=== PATIENT | male | born 2000 | race Two or more races ===

== ENCOUNTER 2024-10-16 21:47 | Emergency (ER) | payer MEDICAID, SELFPAY ==
--- NOTE | 2024-10-16 22:14 | EDNOTE_ITS ---
ED SOB =RME/HPI General Chief Complaint: Shortness of Breath/Dyspnea Stated Complaint: SOB Time Seen by Provider: 10/16/24 22:17 Arrival date/time: 10/16/24 21:47 RME / HPI RME / HPI Narrative: This section includes all my notes and documentations, including HPI, PE, and ED course. Gabriel Gunderson MD HPI: 24yo male with no significant past medical history presents to the ED for a chief complaint of shortness of breath x today. It does not worsen on exertion. No cough, fever, chills, chest pain, abdominal pain or any other associated symptoms. No daily medications. No other complaints reported. ROS: All negative except as documented in HPI. Physical Exam: General: Alert and oriented. Appears severely anxious. Eyes: Conjunctivae and lids clear. ENT: No nasal congestion. Neck: Supple. Heart: RRR. Lungs: No respiratory distress. Good air movement. No rhonchi, wheezing, rales. Abdomen: Soft and nontender. Skin: Warm and dry. Neuro: Alert and oriented X 3. I reviewed all diagnostic test results. My interpretation of the EKG is sinus rhythm with no ST-T changes. My interpretation of the chest x-ray is NAD. Blood tests are unremarkable, including negative troponin/D-dimer/BNP. At this point, diagnoses include shortness of breath due to anxiety. Treatment here included Xanax. Significant improvement noted. Recommended more outpatient workup. Based on my best medical judgment, made decision no further evaluation or treatment indicated at this time. Patient understands and agrees to the discharge instructions customized and printed, see below. Discharge instructions from Dr. Gunderson: 1. After extensive evaluation, there is no life-threatening condition. Such as heart attack or pulmonary embolism (blood clots in your lungs) or pneumothorax (collapsed lung). 2. Your symptoms may be due to underlying stress or anxiety or nerves. This is fairly common. 3. Take Xanax as needed. Whether this helps or not will be valuable information to your private doctors. 4. See a private doctor on 10/17/2024. To make sure there is no serious underlying heart condition, ask to help you get more tests for your heart that cannot be done here in the ER. Such as Holter Monitor (cardiac monitoring at home from a day to even a month), heart stress test (on treadmill or with medication), echocardiogram (imaging of your heart structures), heart catherization (checking for blockages in your heart arteries), and a referral to see a Superintendent [employer]. 5. Seek immediate medical care with worsening or with any concerns. Gabriel Gunderson MD Related Data Previous Rx's ?Medication ?Instructions ?Recorded alprazolam 0.5 mg tablet (Xanax) 0.5 mg PO BID PRN anx iety #10 tabs 10/16/24 Allergies Allergy/AdvReac Type Severity Reaction Status Date / Time No Known Allergies Allergy Verified 10/16/24 21:49 Review of Systems Review of Systems Systems Reviewed: All systems reviewed, normal except as documented Past Medical History Social History SMOKING STATUS: Never smoker ED Exam Narrative Physical exam: As noted in HPI. Course Course Course Narrative: CXR is ordered for determining the etiology of shortness of breath. Quality Measures none Orders Category Date Time Status EKG (ED ONLY) *Do not use* NOW Care 10/16/24 22:16 Completed EKG (ED Only) Stat Exams 10/16/24 22:16 Draft XR chest 1V portable Stat Exams 10/16/24 22:16 Completed BMP [Basic Metabolic Panel] Stat Lab 10/16/24 22:55 Completed BNP [B-Type Natriuretic Peptide] Stat Lab 10/16/24 22:55 Completed CBC Stat Lab 10/16/24 22:55 Completed D-Dimer Stat Lab 10/16/24 22:55 Completed Free T4 (Free Thyroxine) Stat Lab 10/16/24 22:55 Completed Magnesium Stat Lab 10/16/24 22:55 Completed TSH [Thyroid Stimulating Hormone] Stat Lab 10/16/24 22:55 Completed Troponin I Stat Lab 10/16/24 22:55 Completed ALPRazoLAM [Xanax] Med 10/16/24 22:16 Discontinued 0.5 mg PO X1 ONE Vital Signs Vital signs: Vital Signs Temperature 98.5 F 10/16/24 22:15 Pulse Rate 72 10/16/24 22:15 Respiratory Rate 20 10/16/24 22:15 Blood Pressure 133/76 H 10/16/24 22:15 Pulse Oximetry (%) 99 10/16/24 22:15 Oxygen Delivery Method Room Air 10/16/24 22:15 Shortness of Breath / Dyspnea MDM Narrative MDM Narrative:: 24yo male with no significant past medical history presents to the ED for a chief complaint of shortness of breath x today. It does not worsen on exertion. No cough, fever, chills, chest pain, abdominal pain or any other associated symptoms. No daily medications. No other complaints reported. Patient data External records reviewed:: [facility] previous records (Per chart review, patient has no previous ED visits or admissions to this facility.) Clinical information provided by:: patient Social determinants that could affect healthcare access:: none Patient has the following chronic illnesses:: none How is presenting disease/condition affected by chronic disease/condition?: no chronic disease Evaluation data The following diagnostics were reviewed and interpreted by me:: lab results, radiology exam(s) and EKG tracing(s) (My interpretation of the EKG is: Sinus rhythm (62 bpm) with nonspecific ST-T changes. Gabriel Gunderson MD) Lab and/or radiology exams considered but not ordered:: none Interpretation Summary: I reviewed all diagnostic test results. My interpretation of the EKG is sinus rhythm with no ST-T changes. My interpretation of the chest x-ray is NAD. Blood tests are unremarkable, including negative troponin/D-dimer/BNP. Medications / Prescriptions Medications or Prescriptions considered but not ordered:: none Medication administrations:: Medication Administration History Discontinued Medications Alprazolam (Alprazolam 0.25 Mg Tablet) 0.5 mg PO X1 ONE Stop: 10/16/24 22:17 Last Admin: 10/16/24 23:00 Dose: 0.5 mg Documented By: FEMI Lyons Consultations Consultation(s) initiated? (list below): No Diagnosis Shortness of Breath Differential Diagnosis: acute exacerbation of chronic obstructive airways disease, congestive heart failure, community acquired pneumonia, asthma with exacerbation, pulmonary embolism and other (Anxiety) Most likely diagnosis given after review of the tests above:: Shortness of breath due to anxiety Admission Indicated Admission indicated?: not indicated Explain why admission is indicated or not indicated:: With significant improvement and no condition needing emergent intervention, there was no indication for admission. Admission Request Was there a request for admission?: No Disposition Plan Disposition Plan: Discharge Discharge Attestation Discharge Attestation: The patient and all family members were given an opportunity to ask questions and understood the discharge instructions. Discharge instructions specifically effects, indications for sooner follow up or return to the emergency department, and the expected course of current diagnosis. Patient condition: Stable Discharge Plan Plan Patient Disposition: HOME (Self Care) Prescriptions/Referrals Prescriptions/Med Rec: New alprazolam [Xanax] 0.5 mg tablet 0.5 mg PO BID PRN (Reason: anxiety) Qty: 10 0RF Problem List Clinical Impression: Shortness of breath Patient/Caregiver Discharge Instructions Discharge Activity: activity as tolerated Education Materials: ED Anxiety Reaction, ED Shortness of Breath (Dyspnea), ED Panic Attack Additional Instructions: Discharge instructions from Dr. Gunderson: 1. After extensive evaluation, there is no life-threatening condition.? Such as heart attack or pulmonary embolism (blood clots in your lungs) or pneumothorax (collapsed lung). 2. Your symptoms may be due to underlying stress or anxiety or nerves.? This is fairly common. 3. Take Xanax as needed.? Whether this helps or not will be valuable information to your private doctors. 4. See a private doctor on 10/17/2024. To make sure there is no serious underlying heart condition, ask to help you get more tests for your heart that cannot be done here in the ER.? Such as Holter Monitor (cardiac monitoring at home from a day to even a month), heart stress test (on treadmill or with medication), echocardiogram (imaging of your heart structures), heart catherization (checking for blockages in your heart arteries), and a referral to see a Superintendent [employer]. 5. Seek immediate medical care with worsening or with any concerns.?? Instrucciones de avis del Dr. Gunderson: 1. Tras russ evaluaci?n exhaustiva, no se observa ninguna afecci?n potencialmente mortal, monique un infarto de miocardio, russ embolia pulmonar (co?gulos de desi en los pulmones) o un neumot?rax (colapso pulmonar). 2. Los s?ntomas pueden deberse a estr?s, ansiedad o nerviosismo subyacentes. [place] es bastante com?n. 3. [place] Xanax seg?n sea necesario. [place] m?dico le informar? si esto le ayuda o no. 4. Consulte con un m?dico el 17/10/2024. Para asegurarse de que no haya russ afecci?n card?yina subyacente grave, solicite ayuda para realizar m?s pruebas card?acas que no se puedan realizar en urgencias, monique un monitor Holter (monitorizaci?n card?yina en casa desde un d?a hasta un mes), russ prueba de esfuerzo card?aco (en cinta caminadora o con medicaci?n), un ecocardiograma (im?genes de las estructuras card?acas), un cateterismo card?aco (para detectar obstrucciones en las arterias card?acas) y russ derivaci?n a un cardi?logo. 5. Busque atenci?n m?dica inmediata si empeora o tiene alguna inquietud. Print Language: [place] Citizen Stand Alone Forms: Miriam Award Info., Patient Portal Info Letter
[2024-10-16 22:15] VITALS: BP 133/76; PULSE 72; RESP 20; TEMP 36.9; O2SAT 99
--- NOTE | 2024-10-16 22:16 | EKG_ITS ---
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
--- NOTE | 2024-10-16 22:16 | XR_ITS ---
Examination: PA chest single view TECHNIQUE: Upright PA chest single view Date and time: October 16, 2024 10:22 PM INDICATIONS: Coughing chest pain today. FINDINGS: No moderate-sized Lungs are clear. The osseous structures are intact IMPRESSION: No active disease
[2024-10-16] MEDS: ALPRazoLAM 0.25 MG TABLET 0.5 MG PO (23:00)
[2024-10-16 23:04] LABS: Basophils % (Auto) 1 % (0-2.5); Eosinophils % (Auto) 1 % (0-10); Hematocrit 43.1 % (41.0-53.0); Hemoglobin 14.6 g/dL (13.5-16.0); Immature Granulocytes % (Auto) 1 % (0-0); Immature Granulocytes Auto 0.04 Thou/mm3 (0.00-0.00); Lymphocytes # (Auto) 1.7 Thou/mm3 (1.0-4.8); Lymphocytes % (Auto) 26 % (10-50); Mean Corpuscular HGB Conc 33.9 g/dl (31.0-37.0); Mean Corpuscular Hemoglobin 29.9 pg (25.0-35.0); Mean Corpuscular Volume 88 fL (80-100); Monocytes # (Auto) 0.5 Thou/mm3 (0.0-0.8); Monocytes % (Auto) 7 % (0-12); Neutrophils # (Auto) 4.3 Thou/mm3 (1.8-7.7); Neutrophils % (Auto) 65 % (37-80); Nucleated Red Blood Cell % 0 /100 WBC (0); Platelet Count 213 Thou/mm3 (140-440); RDW Standard Deviation 44.2 fL (35.1-43.9); Red Blood Count 4.88 Miln/mm3 (4.50-5.90); White Blood Count 6.6 Thou/mm3 (3.8-10.6)
[2024-10-16 23:20] LABS: D-Dimer < 250 ng/mL (<600)
[2024-10-16 23:25] LABS: Anion Gap 10 (7-16); BUN/Creatinine Ratio 10 Ratio (12-20); Blood Urea Nitrogen 9 mg/dL (9-23); Calcium 9.1 mg/dL (8.3-10.6); Carbon Dioxide 23.8 mMol/L (20.0-31.0); Chloride 109 mMol/L (98-107); Creatinine (Component) 0.9 mg/dL (0.6-1.3); Free T4 (Free Thyroxine) 1.56 ng/dL (0.89-1.76); Glucose 83 mg/dL (74-106); Osmolality,Calculated 282 (275-295); Potassium 3.8 mMol/L (3.4-5.1); Sodium 143 mMol/L (136-145); Troponin I < 0.020 ng/mL (0.0-0.045); eGFR > 60 See Note
[2024-10-16 23:26] LABS: B-Type Natriuretic Peptide < 20 pg/mL (0-100)
[2024-10-16 23:45] VITALS: BP 126/78; PULSE 61; RESP 17; TEMP 36.9; O2SAT 100
== END 2024-10-16 23:54 | disposition home or self-care (01) ==
PROVIDERS: Emergency Provider Emergency Medicine
DX: F41.9 Anxiety disorder, unspecified (principal); R05.9 Cough, unspecified; R07.9 Chest pain, unspecified; R94.31 Abnormal electrocardiogram [ECG] [EKG]
CPT/HCPCS: 36415; 71045; 80048; 83735; 83880; 84439; 84443; 84484; 85025; 85379; 93005; 99283; A9270